=== PATIENT | female | born 1955 | race Caucasian/White ===

== ENCOUNTER → 2018-12-16 15:11 | Outpatient (CLI) | payer OTHER, SELFPAY ==
--- NOTE | 2018-12-16 15:14 | DI.MG.S_ITS ---
BILATERAL DIGITAL SCREENING MAMMOGRAM 3D/2D WITH CAD WITH AUGMENTATION: 12/16/2018 CLINICAL: Patient presents for routine screening. S/P bilateral augmentation. Comparison is made to exams dated: 03/04/2016 mammogram - [facility] and 11/12/2017 mammogram - [facility]. The tissue of both breasts is extremely dense, which lowers the sensitivity of mammography. Current study was also evaluated with a Computer Aided Detection (CAD) system. Bilateral breast implants are intact. There are benign post operative findings in the left breast. No significant masses, calcifications, or other findings are seen in either breast. There has been no significant interval change. IMPRESSION: There is no mammographic evidence of malignancy. A 1 year screening mammogram is recommended. This exam was interpreted at Station ID: [id number]. NOTE: For mammograms, a report in lay terms will be sent to the patient. Approximately 15% of breast malignancies will not be visualized mammographically. In the management of a palpable breast mass, a negative mammogram must not discourage biopsy of a clinically suspicious lesion. Electronically Signed By: Caty patterson/cleve:12/17/2018 10:07:06 letter sent: Normal Exam ACR BI-RADS Category 2: Benign Finding(s) 3342F
== END ==
PROVIDERS: Family Provider Surgery; PCP Obstetrics & Gynecology; Visit Provider Obstetrics & Gynecology
DX: Z12.31 Encounter for screening mammogram for malignant neoplasm of breast (principal); Z98.82 Breast implant status
CPT/HCPCS: 77063; 77067

== ENCOUNTER → 2019-02-15 09:49 | Outpatient (CLI) | payer OTHER, SELFPAY ==
--- NOTE | 2019-02-15 | DI.US.S_ITS ---
PROCEDURE: US SOFT TISSUE HEAD AND NECK INDICATIONS: LEFT NECK LUMP TECHNIQUE: Real-time scanning was performed of the neck region of interest, with image documentation. COMPARISON: None. FINDINGS: Within the left submandibular region there is a focal hypoechoic ovoid structure that has been reportedly present for approximately 6 months. This measures only 3 x 5 x 6 mm, without visualized internal or increased peripheral vascularity. IMPRESSION: Nonspecific subcutaneous ovoid hypoechoic nodule without abnormal internal or peripheral vascularity. This lies in the subdermal layer of the superficial neck, and has a nonspecific appearance. Statistically this likely is benign. Depending on clinical status either followup clinically or excisional biopsy may be warranted. Dictated by: Cesar Olea M.D. on 02/15/2019 at 13:05 Approved by: Cesar Olea M.D. on 02/15/2019 at 13:07
== END ==
PROVIDERS: Family Provider Surgery; Visit Provider Obstetrics & Gynecology
DX: R22.1 Localized swelling, mass and lump, neck (principal)
CPT/HCPCS: 76536

== ENCOUNTER → 2019-12-30 11:09 | Outpatient (CLI) | payer OTHER, SELFPAY ==
--- NOTE | 2019-12-30 | DI.MG.S_ITS ---
BILATERAL DIGITAL SCREENING MAMMOGRAM 3D/2D WITH CAD WITH AUGMENTATION: 12/30/2019 CLINICAL: Routine screening. Comparison is made to exams dated: 12/16/2018 mammogram, 11/12/2017 mammogram - [facility], 03/19/2016 mammogram, and 03/04/2016 mammogram - [facility]. The tissue of both breasts is extremely dense, which lowers the sensitivity of mammography. Current study was also evaluated with a Computer Aided Detection (CAD) system. Bilateral breast implants are intact. There are benign post operative findings in the left breast. No significant masses, calcifications, or other findings are seen in either breast. There has been no significant interval change. IMPRESSION: There is no mammographic evidence of malignancy. A 1 year screening mammogram is recommended. This exam was interpreted at Station ID: [id number]. NOTE: For mammograms, a report in lay terms will be sent to the patient. Approximately 15% of breast malignancies will not be visualized mammographically. In the management of a palpable breast mass, a negative mammogram must not discourage biopsy of a clinically suspicious lesion. Electronically Signed By: Jatin juarez/cleve:12/30/2019 13:09:20 letter sent: Normal Exam ACR BI-RADS Category 2: Benign Finding(s) 3342F
== END ==
PROVIDERS: Family Provider Surgery; Referring Provider Obstetrics & Gynecology; Visit Provider Obstetrics & Gynecology
DX: Z12.31 Encounter for screening mammogram for malignant neoplasm of breast (principal)
CPT/HCPCS: 77063; 77067

== ENCOUNTER → 2022-06-13 08:51 | Outpatient (CLI) | payer OTHER, SELFPAY ==
--- NOTE | 2022-06-13 | DI.MG.S_ITS ---
BILATERAL DIGITAL SCREENING MAMMOGRAM 3D/2D WITH CAD WITH AUGMENTATION: 06/13/2022 CLINICAL: Routine screening. Comparison is made to exams dated: 12/30/2019 mammogram, 12/16/2018 mammogram - [facility], and 05/27/2017 mammogram - [facility] Current study was also evaluated with a Computer Aided Detection (CAD) system. Bilateral breast implants are intact. There are benign post operative findings in the left breast. No significant masses, calcifications, or other findings are seen in either breast. There has been no significant interval change. IMPRESSION: BENIGN There is no mammographic evidence of malignancy. A 1 year screening mammogram is recommended. Based on the Tyrer Cuzick model (a risk assessment model) the patient's lifetime risk is 10.7% and her 10 year risk is 5.7%. According to the ACR, ACS, and NCCN guidelines, an annual breast MRI exam along with mammogram is recommended if the patient's lifetime risk is 20% or greater. This exam was interpreted at Station ID: [id number]. NOTE: For mammograms, a report in lay terms will be sent to the patient. Approximately 15% of breast malignancies will not be visualized mammographically. In the management of a palpable breast mass, a negative mammogram must not discourage biopsy of a clinically suspicious lesion. Electronically Signed By: Edgard willams/cleve:06/13/2022 13:34:39 copy to: Sandy Street DO, [address], ph: [phone] letter sent: Normal Exam ACR BI-RADS Category 2: Benign Finding(s) 3342F
== END ==
PROVIDERS: Family Provider Surgery; Referring Provider Obstetrics & Gynecology; Visit Provider Obstetrics & Gynecology
DX: Z12.31 Encounter for screening mammogram for malignant neoplasm of breast (principal)
CPT/HCPCS: 77063; 77067